=== PATIENT | female | born 1995 | race Caucasian/White ===

== ENCOUNTER 2018-11-08 22:38 | Emergency (ER) | payer SELFPAY ==
[~2018-11-08] VITALS: Ht 157.4 cm; Wt 72.6 kg
[~2018-11-08 22:38] MED LIST: BIRTH CONTROL PO; FLAGYL500 MG PO; LEVOFLOXACIN500 MG PO; PYRIDIUM200 M1 PO; ZOFRAN ODT4 MG SL
[2018-11-08 22:39] VITALS: BP 116/49
[2018-11-08 23:03] LABS: BILIRUBIN NEGATIVE (NEGATIVE); BLOOD NEGATIVE (NEGATIVE); CLARITY CLEAR (CLEAR); COLOR YELLOW (YELLOW); GLUCOSE NEGATIVE (NEGATIVE); KETONE TRACE (NEGATIVE); LEUKO ESTERASE NEGATIVE (NEGATIVE); NITRITE NEGATIVE (NEGATIVE); SPECIFIC GRAVITY >= 1.030 (1.005-1.030); UROBILINOGEN 0.2 E.U./dl (0.2-1.0)
[2018-11-08 23:16] LABS: EPITHELIAL CELLS 35-40
[2018-11-08 23:17] LABS: BACTERIA 1+; RBC 0-2 rbc/hpf (0-2); WBC 0-2 wbc/hpf (0-5)
[2018-11-08] MEDS ORDERED: FLAGYL500 MG PO (23:48)
== END 2018-11-09 00:05 | disposition home or self-care (01) ==
LOC: ED 22:38
PROVIDERS: Nurse Practitioner Family
DX: N76.0 Acute vaginitis (principal); R30.0 Dysuria; Z79.2 Long term (current) use of antibiotics; Z79.899 Other long term (current) drug therapy

== ENCOUNTER 2020-04-16 08:38 | Emergency (ER) | payer OTHER ==
[~2020-04-16] VITALS: Wt 72.6 kg
[2020-04-16 08:45] VITALS: BP 151/93
[2020-04-16 09:07] LABS: BILIRUBIN Negative (Negative); BLOOD 3+ (Negative); CLARITY Cloudy (Clear); COLOR Yellow (Yellow); GLUCOSE Negative (Negative); KETONE Negative (Negative); NITRITE Negative (Negative); SPECIFIC GRAVITY 1.025 (1.001-1.030); UROBILINOGEN 0.2 E.U./dl (0.0-1.0)
[2020-04-16 09:27] LABS: LEUKO ESTERASE Negative (Negative)
[2020-04-16 09:39] LABS: BACTERIA 3+; CALCIUM OXALATE CRYSTALS 3+; RBC 41-50 rbc/hpf (0-2)
[2020-04-16 09:52] LABS: BASO % 0.5 % (0.0-1.0); EOS # 0.1 10*3/uL (0.0-0.4); EOS % 1.5 % (1.0-4.0); HEMATOCRIT 40.2 % (37.0-47.0); LYMPH # 1.5 10*3/uL (1.3-4.4); LYMPH % 17.5 % (27.0-41.0); MEAN CELL VOLUME 96.2 fl (81.0-99.0); MEAN CORPUSCULAR HGB 31.6 pg (27.0-31.0); MEAN CORPUSCULAR HGB CONC 32.8 g/dl (33.0-37.0); MEAN PLATELET VOLUME 10.2 fl (9.6-12.3); MONO # 0.7 10*3/uL (0.1-1.0); MONO % 8.2 % (3.0-9.0); NEUT # 6.2 10*3/uL (2.3-7.9); NEUT % 72.1 % (47.0-73.0); PLATELET COUNT AUTOMATED 220 10*3/uL (130-400); RED BLOOD COUNT 4.18 10*6/uL (4.10-5.10); RED CELL DISTRI WIDTH 11.7 % (0-14.5); WHITE BLOOD COUNT 8.7 10*3/uL (4.8-10.8)
[2020-04-16 10:16] LABS: ALBUMIN 3.7 gm/dl (3.1-4.5); ALKALINE PHOSPHATASE 55 U/L (45-117); BUN 18 mg/dl (7-24); CHLORIDE 110 mmol/L (98-107); CREATININE 1.06 mg/dL (0.55-1.02); LIPASE 85 U/L (73-393); SGOT/AST 16 IU/L (3-35); SGPT/ALT 20 U/L (12-78); SODIUM 140 mmol/L (136-145); TOTAL PROTEIN 6.9 gm/dL (6.4-8.2)
[2020-04-16] MEDS ORDERED: NORCO 5-325 TA1 EACH PO (12:26)
[2020-04-16] MEDS ORDERED: SEPTDS PO (12:26)
[2020-04-16] MEDS ORDERED: IBUPROFEN600 MG PO (12:26)
== END 2020-04-16 12:38 | disposition home or self-care (01) ==
LOC: ED 08:38
PROVIDERS: Emergency Medicine; Physician Assistant
DX: N13.2 Hydronephrosis with renal and ureteral calculous obstruction (principal); R30.0 Dysuria

== ENCOUNTER 2020-06-26 20:32 | Emergency (ER) | payer OTHER ==
[~2020-06-26] VITALS: Wt 72.6 kg
[~2020-06-26 20:32] MED LIST changes: +IBUPROFEN600 MG PO; +NORCO 5-325 TA1 EACH PO; +SEPTDS PO
[2020-06-26 20:37] VITALS: BP 130/72
[2020-06-26 21:03] LABS: BILIRUBIN Negative (Negative); BLOOD Negative (Negative); CLARITY Clear (Clear); COLOR Yellow (Yellow); GLUCOSE Negative (Negative); KETONE Negative (Negative); LEUKO ESTERASE Negative (Negative); NITRITE Negative (Negative); PH 6.5 (4.5-8.0); UROBILINOGEN 0.2 E.U./dl (0.0-1.0)
[2020-06-26 21:11] LABS: BACTERIA 2+; RBC 0-2 rbc/hpf (0-2)
[2020-06-26] MEDS ORDERED: DOXYCYCLINE100 M3 PO (21:14)
== END 2020-06-26 21:40 | disposition home or self-care (01) ==
LOC: ED 20:32
PROVIDERS: Physician Assistant
DX: Z20.2 Contact with and (suspected) exposure to infections with a predominantly sexual mode of transmission (principal); Z87.442 Personal history of urinary calculi